=== PATIENT | female | born 1980 | race Caucasian/White ===

== ENCOUNTER 2018-07-21 18:30 | Inpatient (IN) | payer OTHER ==
[~2018-07-21] VITALS: Ht 167.6 cm; Wt 108.9 kg
[2018-07-21 19:04] LABS: BASOPHIL % 0.8 % (0-2); PLATELET COUNT 357 x10^3mcL (130-400); RED CELL DISTRIBUTION WIDTH 14.1 % (11.5-14.5)
[2018-07-21 19:09] LABS: UA SPECIFIC GRAVITY >=1.030 (1.005-1.035); microscopic required? YES; urine erythrocyte 3+ (NEGATIVE)
[2018-07-21 19:11] LABS: CALCIUM 9.6 mg/dL (8.5-10.1); CARBON DIOXIDE 21.9 mmol/L (21-32); CHLORIDE SERUM 102 mmol/L (98-107); CREATININE SERUM 0.9 mg/dL (0.6-1.0); GFR1 > 60 mL/min; GLUCOSE SERUM 211 mg/dL (74-106); POTASSIUM SERUM 3.8 mmol/L (3.5-5.1); SODIUM SERUM 140 mmol/L (136-145)
[2018-07-21 19:16] LABS: ALBUMIN 3.8 g/dL (3.4-5.0); ALKALINE PHOSPHATASE 48 U/L (46-116); ALT/SGPT 31 U/L (14-59); AST/SGOT 29 U/L (15-37); BILIRUBIN TOTAL 0.4 mg/dL (0.20-1.00); LIPASE 41 IU/L (73-393); TOTAL PROTEIN, SERUM 7.9 g/dL (6.4-8.2)
[2018-07-21] MEDS ORDERED: AMBIEN10 MG (20:57)
[2018-07-21] MEDS ORDERED: BACLOFEN20 MG (20:57)
[2018-07-21] MEDS ORDERED: ATIVAN1 MG (20:57)
[2018-07-21] MEDS ORDERED: PERCOCET1 TA5 PO (20:58)
[2018-07-21] MEDS ORDERED: ZOF4 (20:58)
[2018-07-21] MEDS ORDERED: SEROQUEL200 MG (20:58)
[2018-07-21] MEDS ORDERED: TERBINAFINE250 MG (20:59)
[2018-07-21] MEDS ORDERED: AMARYL4 MG (20:59)
[2018-07-21] MEDS ORDERED: NEURONTIN600 MG (20:59)
[2018-07-21] MEDS ORDERED: CYMBALTA60 M1 (20:59)
[2018-07-21] MEDS ORDERED: METFORMIN HCL850 MG (21:00)
[2018-07-21] MEDS ORDERED: CYMBALTA30 M1 (21:00)
[2018-07-21] MEDS ORDERED: BUSPIRONE HCL15 MG (21:00)
[2018-07-21] MEDS ORDERED: ASPIR 8181 MG (21:01)
[2018-07-21 21:26] LABS: MAGNESIUM 1.5 mg/dL (1.8-2.4); PHOSPHOROUS 3.2 mg/dL (2.5-4.9)
[2018-07-21 21:36] VITALS: BP 194/121
[2018-07-21 21:43] VITALS: Ht 167.6 cm; Wt 108.9 kg
[2018-07-21] MEDS ORDERED: CYMBALTA30 M1 PO (23:22)
[2018-07-21 23:25] VITALS: BP 155/90
[2018-07-22 04:25] VITALS: BP 173/98
[2018-07-22 05:54] VITALS: BP 155/96
[2018-07-22 06:31] LABS: BASOPHIL % 0.1 % (0-2); PLATELET COUNT 299 x10^3mcL (130-400); RED CELL DISTRIBUTION WIDTH 14.1 % (11.5-14.5)
[2018-07-22 06:44] LABS: CALCIUM 8.8 mg/dL (8.5-10.1); CARBON DIOXIDE 23.7 mmol/L (21-32); CHLORIDE SERUM 102 mmol/L (98-107); CREATININE SERUM 0.8 mg/dL (0.6-1.0); GFR1 > 60 mL/min; GLUCOSE SERUM 220 mg/dL (74-106); POTASSIUM SERUM 3.5 mmol/L (3.5-5.1); SODIUM SERUM 141 mmol/L (136-145)
[2018-07-22 09:00] VITALS: BP 159/95
[2018-07-22 14:12] VITALS: BP 160/94
[2018-07-22 16:55] VITALS: BP 165/102
[2018-07-22 21:57] VITALS: BP 137/82
[2018-07-23 05:37] VITALS: BP 168/101
[2018-07-23 07:37] LABS: PLATELET COUNT 282 x10^3mcL (130-400); RED CELL DISTRIBUTION WIDTH 14.2 % (11.5-14.5)
[2018-07-23 07:54] LABS: CALCIUM 8.1 mg/dL (8.5-10.1); CARBON DIOXIDE 22.4 mmol/L (21-32); CHLORIDE SERUM 103 mmol/L (98-107); CREATININE SERUM 0.7 mg/dL (0.6-1.0); GFR1 > 60 mL/min; GLUCOSE SERUM 167 mg/dL (74-106); MAGNESIUM 2.2 mg/dL (1.8-2.4); PHOSPHOROUS 1.9 mg/dL (2.5-4.9); POTASSIUM SERUM 3.1 mmol/L (3.5-5.1); SODIUM SERUM 140 mmol/L (136-145)
[2018-07-23 08:55] LABS: BAND NEUTROPHIL 4 % (0-10); BASOPHIL 0 % (0-2); MONOCYTE 5 % (0-7); SEGMENTED NEUTROPHILS 75 % (37-75)
[2018-07-23 08:56] LABS: PLATELET MORPHOLOGY PLATELETS NORMAL; rbc morphology (normal/abnorm) NORMAL (NORMAL)
[2018-07-23 09:45] VITALS: BP 154/108
[2018-07-23 13:32] VITALS: BP 172/104
[2018-07-23 18:06] VITALS: BP 181/104
[2018-07-23 21:00] VITALS: BP 175/100
[2018-07-23 22:20] VITALS: BP 158/91
[2018-07-24 05:25] VITALS: BP 174/99
[2018-07-24 06:55] LABS: BASOPHIL % 0.5 % (0-2); PLATELET COUNT 292 x10^3mcL (130-400); RED CELL DISTRIBUTION WIDTH 14.2 % (11.5-14.5)
[2018-07-24 07:10] LABS: CALCIUM 8.2 mg/dL (8.5-10.1); CARBON DIOXIDE 22.7 mmol/L (21-32); CHLORIDE SERUM 104 mmol/L (98-107); CREATININE SERUM 0.7 mg/dL (0.6-1.0); GFR1 > 60 mL/min; GLUCOSE SERUM 132 mg/dL (74-106); MAGNESIUM 2.1 mg/dL (1.8-2.4); PHOSPHOROUS 1.9 mg/dL (2.5-4.9); POTASSIUM SERUM 3.3 mmol/L (3.5-5.1); SODIUM SERUM 138 mmol/L (136-145)
[2018-07-24 08:29] VITALS: BP 188/104
[2018-07-24 14:31] VITALS: BP 161/89
[2018-07-24 16:13] VITALS: BP 142/76
[2018-07-24 21:14] VITALS: BP 190/99
[2018-07-24 23:12] VITALS: BP 174/97
[2018-07-25 02:00] VITALS: BP 141/76
[2018-07-25 06:17] VITALS: BP 155/78
[2018-07-25 06:37] LABS: BASOPHIL % 0.4 % (0-2); PLATELET COUNT 326 x10^3mcL (130-400); RED CELL DISTRIBUTION WIDTH 14.4 % (11.5-14.5)
[2018-07-25 07:11] LABS: CARBON DIOXIDE 25.8 mmol/L (21-32); CHLORIDE SERUM 103 mmol/L (98-107); CREATININE SERUM 0.7 mg/dL (0.6-1.0); GFR1 > 60 mL/min; GLUCOSE SERUM 79 mg/dL (74-106); POTASSIUM SERUM 3.5 mmol/L (3.5-5.1); SODIUM SERUM 141 mmol/L (136-145)
[2018-07-25 08:02] VITALS: BP 191/102
[2018-07-25] MEDS ORDERED: DYA PO (11:14)
[2018-07-25] MEDS ORDERED: REGLAN10 M1 PO (11:17)
[2018-07-25 12:01] VITALS: BP 145/78
[2018-07-25 13:11] VITALS: BP 145/78
== END 2018-07-25 13:30 | disposition home or self-care (01) | DRG 720 ==
LOC: ED 18:30 → DU 20:23 → MU 20:23 → DU 07-22 08:43 → MU 07-24 10:17
PROVIDERS: Emergency Medicine; ADMIT Internal Medicine
DX: A41.89 Other specified sepsis (principal); N17.0 Acute kidney failure with tubular necrosis; E11.43 Type 2 diabetes mellitus with diabetic autonomic (poly)neuropathy; K65.9 Peritonitis, unspecified; K31.84 Gastroparesis; F11.20 Opioid dependence, uncomplicated; E83.39 Other disorders of phosphorus metabolism; R45.851 Suicidal ideations; F31.9 Bipolar disorder, unspecified; E87.6 Hypokalemia; E83.42 Hypomagnesemia; F32.9 Major depressive disorder, single episode, unspecified; E66.9 Obesity, unspecified; A08.4 Viral intestinal infection, unspecified; G89.29 Other chronic pain; M54.9 Dorsalgia, unspecified; I10 Essential (primary) hypertension; M79.7 Fibromyalgia; Z79.82 Long term (current) use of aspirin; Z68.39 Body mass index [BMI] 39.0-39.9, adult; Z79.84 Long term (current) use of oral hypoglycemic drugs; Z88.5 Allergy status to narcotic agent; Z90.49 Acquired absence of other specified parts of digestive tract; Z90.89 Acquired absence of other organs; Z83.3 Family history of diabetes mellitus; Z82.49 Family history of ischemic heart disease and other diseases of the circulatory system
CPT/HCPCS: 82962; 87046; 87046-59; J0360; J0744; J0780; J1200; J1815; J1885; J1940; J2060; J2405; J2550; J2765; J3010; J3480; J3490; J7030; J7050; Q0092; Q0162

== ENCOUNTER 2018-08-04 22:40 | Inpatient (IN) | payer OTHER ==
[~2018-08-04] VITALS: Ht 170.2 cm; Wt 107.0 kg
[~2018-08-04 22:40] MED LIST: AMARYL4 MG; AMBIEN10 MG; ASPIR 8181 MG; ATIVAN1 MG; BACLOFEN20 MG; BUSPIRONE HCL15 MG; CYMBALTA30 M1; CYMBALTA30 M1 PO; CYMBALTA60 M1; DYA PO; METFORMIN HCL850 MG; NEURONTIN600 MG; PERCOCET1 TA5 PO; REGLAN10 M1 PO; SEROQUEL200 MG; TERBINAFINE250 MG; ZOF4
[2018-08-04 22:55] VITALS: Ht 170.2 cm; Wt 107.0 kg
--- NOTE | 2018-08-04 23:23 | NUR ---
PT BIB SELF C/O NAUSEA, VOMITING YELLOW EMESIS, AND GENERALIZED ADBOMINAL PAIN X1 DAY. PT HAS HX OF DIABETIC GASTROPARESIS PER PT. PT IS ACTIVELY VOMITING AT THIS TIME. SKIN IS PALE, WARM AND DRY. PT STS ABDOMINAL PAIN IS 9/10 CURRENTLY. PT IS AAOX4, NO SIGNS OF DISTRESS NOTED, RESP E/U. MSE COMPLETED BY DR RIANES. PT GOWNED AND PLACED ON MONITOR. BED IN LOWEST POSITION, SIDE RAILS UP FOR SAFETYM AND CALL HODGE WITHIN REACH.
--- NOTE | 2018-08-04 23:47 | NUR ---
EMT AT BEDSIDE FOR EKG
--- NOTE | 2018-08-05 00:08 | NUR ---
LAB AT BEDSIDE FOR LAB DRAW
--- NOTE | 2018-08-05 00:16 | NUR ---
XRAY AT BEDSIDE.
--- NOTE | 2018-08-05 00:23 | NUR ---
PT IN POSITION OF COMFORT LAYING SUPINE, PT IS AAOX4, NO SIGNS OF DISTRESS, RESP E/U. PT STATED "MY PAIN AND NAUSEA ARE GONE." SKIN IS PALE, DRY AND WARM. PT ON FULL CM, VSS, NSR, WILL CONT TO MONITOR.
[2018-08-05 00:25] LABS: BASOPHIL % 0 % (0-2); PLATELET COUNT 427 x10^3mcL (130-400); RED CELL DISTRIBUTION WIDTH 14.8 % (11.5-14.5)
[2018-08-05 00:38] LABS: CALCIUM 9.7 mg/dL (8.5-10.1); CARBON DIOXIDE 25.1 mmol/L (21-32); CHLORIDE SERUM 101 mmol/L (98-107); CREATININE SERUM 1.1 mg/dL (0.6-1.0); GFR1 > 60 mL/min; GLUCOSE SERUM 268 mg/dL (74-106); POTASSIUM SERUM 4.1 mmol/L (3.5-5.1); SODIUM SERUM 141 mmol/L (136-145)
[2018-08-05 00:43] LABS: ALBUMIN 3.8 g/dL (3.4-5.0); ALKALINE PHOSPHATASE 58 U/L (46-116); ALT/SGPT 27 U/L (14-59); AST/SGOT 8 U/L (15-37); BILIRUBIN TOTAL 0.3 mg/dL (0.20-1.00); MAGNESIUM 1.4 mg/dL (1.8-2.4); TOTAL PROTEIN, SERUM 8.4 g/dL (6.4-8.2)
--- NOTE | 2018-08-05 01:04 | NUR ---
MAINTENANCE IV FLUIDS INITIATED, PT VERBALIZED UNDERSTANDING OF MEDICATION PRIOR TO ADMINISTRATION. PT PROVIDED WITH ANOTHER WARM BLANKET. CALL LIGHT IN REACH.
--- NOTE | 2018-08-05 01:31 | NUR ---
IV MAG INITIATED PER ORDER, PT VERBALIZED UNDERSTANDING OF MEDICATION PRIOR TO ADMINISTRATION. PT CURRENTLY REPORTS SOME NAUSEA AND 4/10 PAIN IN BACK, ASSISTED PT INTO MORE COMFORTABLE POSITION.
--- NOTE | 2018-08-05 02:59 | NUR ---
PER DR RAINES, NO PT/PTT/INR WILL BE ORDERED AND DIFFERENTIAL ON CBC ALSO WILL NOT BE ORDERED.
--- NOTE | 2018-08-05 03:17 | NUR ---
PT AMBUALTED TO RESTROOM AND BACK WITH A STEADY GAIT WITHOUT INCIDENT. MEDICATED PT PER MD ORDER, SEE EMAR. PT EDUCATED FULLY ABOUT MEDICATION. FLUIDS INFUSING NO PROB, PT IS AAOX4, NO SIGNS OF DISTRESS NOTED, RESP E/U. PT DENIES ANY NAUSEA AT THIS TIME. PT STS 4/10 PAIN IN HER LOWER BACK. WILL CONT TO MONITOR.
[2018-08-05 03:38] LABS: UA SPECIFIC GRAVITY >=1.030 (1.005-1.035); microscopic required? YES; urine erythrocyte NEGATIVE (NEGATIVE)
--- NOTE | 2018-08-05 03:41 | NUR ---
PT MEDICATED PER ORDER. PT VERBALIZED UNDERSTANDING OF MEDICATION TEACHING. SEE EMAR FOR DETAILS.
[2018-08-05 03:47] LABS: AMPHETAMINE QUAL UR NONE DETECTED (See below)
--- NOTE | 2018-08-05 03:47 | NUR ---
DEMARCUS REPORT TO LUKE ON TELE UNIT WHO WILL RESUME FURTHER CARE OF THIS PATIENT.
[2018-08-05] MEDS ORDERED: TRI-SPRINTEC 281 TAB PO (03:48)
[2018-08-05] MEDS ORDERED: ALL DAY ALLERGY10 M2 PO (03:48)
[2018-08-05] MEDS ORDERED: BACLOFEN5 MG PO (03:49)
[2018-08-05] MEDS ORDERED: GLIMEPIRIDE4 M1 PO (03:50)
[2018-08-05] MEDS ORDERED: OXYC PO (03:51)
[2018-08-05] MEDS ORDERED: LOSARTAN POTASS1 TA6 PO (03:52)
[2018-08-05] MEDS ORDERED: TIZANIDINE HCL4 MG PO (03:52)
[2018-08-05] MEDS ORDERED: GLIMEPIRIDE2 M1 PO ×2 (03:54)
[2018-08-05] MEDS ORDERED: GEMFIBROZIL600 MG PO (03:55)
[2018-08-05] MEDS ORDERED: PRAZOSIN HCL2 MG PO (03:55)
[2018-08-05] MEDS ORDERED: ALLOPURINOL100 MG PO (03:55)
[2018-08-05] MEDS ORDERED: PRAZOSIN HYDROCH1 MG PO (03:56)
[2018-08-05 04:14] VITALS: BP 147/87
[2018-08-05 04:15] VITALS: BP 147/878
--- NOTE | 2018-08-05 04:15 | NUR ---
PT TRANSFERRED FROM ER VIA GURNEY ACCOMPANIED BY RN AND EMT. PT IS A/O X4. PT WITH C/O PAIN TO R HAND IV SITE WITH SLIGHT REDNESS NOTED, FLUSHED WITH 10CC NS, PT STATES FEELING SEVERE PAIN. IV DC'D WITH CATHETER INTACT. IV REINSERTED TO R CHEST G 22 WITH GOOD BLOOD RETURN, FLUSHED WITH 10 CC NS WITHOUT ANY INFILTRATION NOTED. 1.5L BOLUS CONTINUED FROM ER AT THIS TIME WITH 1.25L REMIAINING. PT IS A/O X4, SPEECH CLEAR AND APPROPRIATE. PERSONAL SERVICE WORKERS IN PLACE SHOWING NSR WITH HR 98. DENIES ANY CP, SYNCOPE OR DIZZINESS. ABD ROUND, SOFT, NONTENDER TO TOUCH. BOWEL SOUNDS ACTIVE. PULSES PALPABLE X4. BLE NONPITTING EDEMA NOTED. CAP REFILL < 3 SECS. SKIN INTACT. WARM DRY TO TOUCH. PT AMB WITH STEADY GAIT. INSTRUCTED TO CALL FOR ANY ASSISTANCE WITH CALL LIGHT. BED IN LOWEST POSITION. CALL LIGHT WITHIN REACH. WILL CONTINUE TO MONITOR.
[2018-08-05 04:24] LABS: PHOSPHOROUS 2.1 mg/dL (2.5-4.9)
[2018-08-05 04:28] LABS: CHOLESTEROL/HDL RATIO 3.1
[2018-08-05 04:33] LABS: FREE T4 1.05 ng/dL (0.76-1.46); FREE THYROXINE INDEX 3.1 ug/dL (1.4-4.5); T3 TOTAL 1.42 ng/mL; T4(THYROXINE) 10.8 ug/dL (4.7-13.3)
[2018-08-05 06:14] VITALS: BP 149/95
--- NOTE | 2018-08-05 06:21 | NUR ---
R CHEST IV INFILTRATED. DC'D WITH CATHETER INTACT. IV REINSERTED TO LFA G 22 WITH GOOD BLOOD RETURN. FLUSHED WITH 10 CC NS WITHOUT ANY INFILTRATION NOTED.
--- NOTE | 2018-08-05 06:30 | NUR ---
1.5L NS BOLUS COMPLETE, CONTINUED FROM ER.
--- NOTE | 2018-08-05 07:00 | NUR ---
RECEIVED BEDSIDE REPORT FROM [facility] SHIFT NURSE. PATIENT IS STABLE RESTING COMFORTABLY IN BED. NO APPARENT SIGNS OF SOB. PATIENT DENIES PAIN AT THIS TIME. PATIENT DENIES N/V. IV INFUSING WELL INTO THE LFA IS INFUSING AT 100ML/HR. PATIENT DENIES OTHER NEEDS AT THIS TIME. QUESTIONS AND CONCERNS ADDRESSED. SAFETY PRECAUTIONS IN PLACE.
--- NOTE | 2018-08-05 07:20 | NUR ---
ASSESSMENT COMPETED, PLEASE SEE PROBLEM FOCUS FOR DETAILS.
--- NOTE | 2018-08-05 08:59 | NUR ---
ADMINISTERED MORNING MEDICATION PATIENT TOLORATED WELL. NO APPARENT SIGNS OF N/V. PATIENT DENIES OTHER NEEDS AT THIS TIME. SAFETY PRECAUTIONS IN PLACE. PATIENT MADE AWARE OF PENDING MRI OF THE BRAIN SCHEDULED FOR THIS MORNING.
[2018-08-05 09:52] VITALS: BP 143/85
--- NOTE | 2018-08-05 10:05 | NUR ---
DR WALDRON AND RESIDENT TEAM AT BEDSIDE.
--- NOTE | 2018-08-05 11:36 | NUR ---
ADMINISTERDE SCHEDULED MEDICATION PER ORDERS. PATIENT IS STABLE, NO APPARENT SIGNS OF PAIN OR SOB. PATIENT DENIES N/V AT THIS TIME. PATIENT DENIES OTHER NEEDS AT THIS TIME. SAFETY PRECAUTIONS IN PLACE.
[2018-08-05 13:18] VITALS: BP 150/94
--- NOTE | 2018-08-05 13:22 | NUR ---
ADMINISTERED AFTERNOON MEDICATION. PATIENT IS STABLE, NO APPARENT SIGNS OF SOB, OR RESPIRATORY DISTRESS. PATIENT DENIES PAIN, N/V AT THIS TIME. PATIENT DENIES OTHER NEEDS AT THIS TIME. CALL LIGHT WITHIN REACH, BED IN LOW POSITION, BED RAILS UP X2. SAFETY PRECAUTIONS IN PLACE.
[2018-08-05 14:51] VITALS: BP 150/94
--- NOTE | 2018-08-05 15:03 | NUR ---
PATIENT IS STABLE, NO APPARETN SIGNS OF SOB, RESPIRATORY DISTRESS, PAIN OR N/V. PATIENT GIVEN DISCHARGE INSTRUCTIONS, PATIENT VERBALIZES UNDERSTANDING OF DISCHARGE INSTRUCTIONS AND FOLLOW UP APPOINTMENT. MOTHER AT BEDSIDE. IV DISCONTINUED, ID BANDS REMOVED, TELE MONITOR REMOVED AND RETURNED. ALL PERSONAL BELONGINGS WITH PATIENT. PATIENT TAKEN DOWN TO LOBBY VIA WHEEL CHAIR BY CRISS.
== END 2018-08-05 15:15 | disposition home or self-care (01) | DRG 720 ==
LOC: ED 22:40 → DU 08-05 02:58 → MU 08-05 02:58 → DU 08-05 04:12
PROVIDERS: Emergency Medicine; ADMIT Internal Medicine
DX: A41.9 Sepsis, unspecified organism (principal); N17.0 Acute kidney failure with tubular necrosis; K65.9 Peritonitis, unspecified; K31.84 Gastroparesis; E11.43 Type 2 diabetes mellitus with diabetic autonomic (poly)neuropathy; E11.65 Type 2 diabetes mellitus with hyperglycemia; E83.39 Other disorders of phosphorus metabolism; E83.42 Hypomagnesemia; G89.29 Other chronic pain; M54.9 Dorsalgia, unspecified; I10 Essential (primary) hypertension; F32.9 Major depressive disorder, single episode, unspecified; M79.7 Fibromyalgia; Z68.36 Body mass index [BMI] 36.0-36.9, adult; Z79.84 Long term (current) use of oral hypoglycemic drugs; Z88.5 Allergy status to narcotic agent; Z90.49 Acquired absence of other specified parts of digestive tract; Z83.3 Family history of diabetes mellitus; Z82.49 Family history of ischemic heart disease and other diseases of the circulatory system
CPT/HCPCS: 82962; 83880; 84439; J0696; J2765; J3010; J3475; J3490; J7030; J7040; J8597; Q0092